=== PATIENT | male | born 1940 | race Caucasian/White ===

== ENCOUNTER 2024-05-28 11:46 | Inpatient (IN) | payer OTHER, SELFPAY ==
[2024-05-27] VITALS (12 sets, daily range): BP systolic 114–181; BP diastolic 60–157; PULSE 77; O2SAT 95; BMI 34.2
--- NOTE | 2024-05-27 08:36 | ED.GENMED ---
History of Present Illness
General
Chief Complaint: Fall
Source: patient and ambulance crew
Exam Limitations: none
Time Seen by Provider: 05/27/24 07:53
Nursing documentation reviewed up to this point in time: agreed with
History of Present Illness
History of Present Illness:
Patient who is legally blind, presents to ED from home after falling down while walking to the bathroom. Patient's spouse heard the noise and attempted to him immediately. Secondary to significant right shoulder pain from the fall, 911 was called.
Patient does recall hitting his head when he fell down. However, denies headache or dizziness. Denies nausea or vomiting. Denies loss of sensation or weakness. Patient does not take any blood thinning medication. In addition, patient presents
with significantly swollen legs, which has been evaluated both by his primary care physician as well as technology consultant. Patient does not believe he is taking any water pills currently. Denies chest pain or shortness of breath. Denies leg pain.
Denies fever.
Review of Systems
Review of Systems
Allergies reviewed?: Yes
All Other Systems: ROS reviewed and negative except as documented in HPI and ROS
Constitutional: Reports no symptoms
EENT: Reports no symptoms
Respiratory: Reports no symptoms; Denies trouble breathing
Cardiac: Reports no symptoms; Denies chest pain
ABD/GI: Reports no symptoms
Musculoskeletal: Reports edema
Skin: Reports no symptoms
Neurological: Reports no symptoms
Phy Exam
Physical Exam
Physical Exam:
Physical Exam
General: mid painful distress, not acutely ill. afebrile
Head: mild swelling noted posterior scalp.
Neck: supple. normal range of motion.
Heart: s1/s2 regular rate and rhythm, no murmur. equal radial pulses.
Lungs: no acute respiratory distress. clear bilaterally
Abdomen: normal bowel sounds. not tender.
Neuro: alert and oriented. no focal neurological deficits
Skin: no rash
Psychiatric: well kept. interactive and cooperative
Extremities: diffuse right shoulder tenderness to palpation without obvious deformity. b/l LE edema, pitting
Course
Orders/Labs/Results
Orders:
Orders
05/27/24 08:29
CT Cervical Spine W/o Iv Contr Urgent
Comment:
Reason For Exam: trauma
CT Head W/o Iv Contrast Urgent
Comment:
Reason For Exam: trauma
CR Shoulder, Trauma - Right Urgent
Reason For Exam: trauma
05/27/24 08:39
Acetaminophen [Tylenol] 650 mg PO NOW STA
05/27/24 11:14
Case Management Consult ONCE
Case Management Consult: Discharge Planning
05/27/24 11:15
HYDROmorphone [Dilaudid] 0.5 mg IV NOW STA
05/27/24 11:32
Physical Therapy Consult [Pt Eval And Treat] Urgent
Activity Level: As Tolerated
05/27/24 12:54
CR Chest Portable - 1 View Urgent
Comment:
Reason For Exam: fluid overload
Reason Study Needs to be Portable: Patient Unstable
05/27/24 13:31
Complete Blood Count/No Diff Urgent
NT-proBNP Urgent
05/27/24 14:08
Ketorolac [Toradol] 15 mg IV NOW STA
05/27/24 14:20
Basic Metabolic Panel Urgent
Magnesium Urgent
05/27/24 Dinner
Cholesterol Lowering
At Your Request: Limited Participation
Does patient need a safe tray?: No
Cholesterol Lowering: Sodium, 2 Gram
05/27/24 15:44
Admit/Transfer Patient As Directed
Co-Sign Provider:
Level of Care: Observation services
Assign to:: Medical/Surgical
Physician / Group: [email or web address]
Diagnosis: acute traumatic Rt NoF Humaral Fx s/p mechanical fall, acute gait dysfuncti
05/27/24 15:46
Code Status As Directed
Resuscitation Status: Full Code
05/27/24 15:58
Peripheral Venous Lwr Ext Bilat US [US Periph Venous LOWER Ext [place]] Urgent
Comment:
Reason For Exam: eval for DVT
05/27/24 17:38
Furosemide [Lasix] 40 mg PO DAILYPRN PRN
HYDROmorphone [Dilaudid] 0.25 mg IV Q4HPRN PRN
Magnesium Hydroxide [Milk of Magnesia] 30 ml PO DAILYPRN PRN
Oxycodone [Roxicodone] 5 mg PO Q4HPRN PRN
Tamsulosin [Flomax] 0.4 mg PO DAILYPRN PRN
Trazodone [Desyrel] 150 mg PO HSPRN PRN
05/27/24 17:38
ORTHOPEDIC CONSULT Routine
Consulting Provider: Otf Rucker
Was physician already notified: Yes
Reason for consult: Rt neck of humeral Fx
Activity As Directed
Activity Level: With Assistance
Bladder Scan As Directed
Follow Bladder Retention/Intermittent Cath Algorithm?: Yes
PRN if no void in __ hours: 6
Comment: if not voiding 6 hrs upon arrival to floor, bladder scan & follow algorithm
Intake/ Output As Directed
Frequency: Per unit guidelines
Straight Cath As Directed
Frequency: Per Retention Algorithm
Additional Instructions: straight cath as needed per acute urinary retention algorithm for 24 hrs
Additional Instructions: for bladder scan greater than 400 mL
Vital Signs As Directed
Frequency: Per unit guidelines
Ot Eval And Treat Routine
Pt Eval And Treat Routine
Activity Level: With Assistance
DX Deep Vein Thrombosis Video Routine
05/27/24 17:51
Gabapentin [Neurontin] 600 mg PO HSPRN PRN
05/27/24 18:00
Acetaminophen [Tylenol] 650 mg PO Q4HWA
Atorvastatin [Lipitor] 10 mg PO QPM
CeFAZolin 1 GRAM [Ancef] 1 gram in 5 ml IV Q8H
Enoxaparin Sodium [Lovenox] 40 mg SC QPM
Flush (0.9% Sodium Chloride) [Flush (Nss)] See Dose Instructions IV PER PROTOCOL
05/27/24 18:25
Pt Screening Request from [facility] Routine
05/27/24 20:00
Docusate Sodium [Colace] 100 mg PO BID
Miconazole Nitrate [Desenex/Mitrazol/Zeasorb] See Dose Instructions TOPICAL BID
Sennosides [Senokot] 17.2 mg PO BID
05/28/24 08:00
Allopurinol [Zyloprim] 200 mg PO DAILY
Metoprolol Xl [Toprol Xl] 50 mg PO DAILY
Valsartan [Diovan] 80 mg PO DAILY
05/29/24 06:00
Basic Metabolic Panel IN AM
Complete Blood Count/No Diff IN AM
Magnesium IN AM
05/30/24 06:00
Basic Metabolic Panel IN AM
Complete Blood Count/No Diff IN AM
Magnesium IN AM
05/31/24 06:00
Basic Metabolic Panel IN AM
Complete Blood Count/No Diff IN AM
Magnesium IN AM
06/01/24 06:00
Basic Metabolic Panel IN AM
Complete Blood Count/No Diff IN AM
06/02/24 06:00
Basic Metabolic Panel IN AM
Complete Blood Count/No Diff IN AM
06/03/24 06:00
Basic Metabolic Panel IN AM
Complete Blood Count/No Diff IN AM
06/04/24 06:00
Basic Metabolic Panel IN AM
Complete Blood Count/No Diff IN AM
Abnormal Lab Results
05/27/24 05/27/24 05/27/24
13:31 14:20 21:36
RBC 4.17 L 10^6/uL
(4.70-6.10)
Hgb 12.9 L g/dL
(13.0-18.0)
Hct 37.1 L %
(39.0-52.0)
MPV 10.8 H fL
(7.4-10.4)
BUN 30 H mg/dl
(9-20)
Glucose 125 H mg/dl
(70-99)
POC Glucose 144 H mg/dl
(70-99)
05/28/24
07:21
RBC
Hgb
Hct
MPV
BUN
Glucose
POC Glucose 109 H mg/dl
(70-99)
05/27/24 13:31
05/27/24 14:20
Vital Signs
Initial and Last Documented VS:
Initial Vital Signs
BP
132/76
05/27/24 07:53
Last Documented Vital Signs
Temp Pulse Resp BP Pulse Ox
97.8 F 65 17 141/78 96
05/28/24 08:00 05/28/24 08:54 05/28/24 08:00 05/28/24 08:54 05/28/24 08:00
MDM/Problems Addressed
MDM/Problems Addressed:
X-ray report reviewed and discussed with patient and his daughter. Afterwards, patient evaluated by physical therapy and case management. In light of recent left wrist fracture along with now right shoulder fracture, as well as instability when
ambulating, patient unsafe to discharge home. In addition, patient with significant leg swelling despite Lasix as an outpatient. As such, patient may benefit from inpatient diuresis as well.
*Critical Care Note
Total Time (30-74mins, 75-104mins- exclusive of procedures): Not Applicable
ED Attending Note
-
Portions of this chart may have been created with voice recognition software.� Occasional wrong word or��sound alike� substitutions may have occurred due to the inherent limitations of voice recognition software.
Discharge Plan
Departure
Patient Disposition: Admit
Date of Disposition: 05/27/24
Time of Disposition: 14:28
Admit to: Telemetry
Presentation/result/management discussed w/ accepting MD/DO: Hospitalist
Discharge Problem:
Fracture of shoulder, Leg swelling
Interventions
Interventions:
*Risk Screen - Suicide Last Done: 05/27/24 08:12
*General Assessment Last Done: 05/27/24 08:12
*Neglect/Abuse Screening Last Done: 05/27/24 08:12
ED- Fall Risk Assessment Last Done: 05/27/24 16:35
*ED COVID-19 Vaccine History Last Done: 05/27/24 08:12
*Nursing Disposition Last Done: 05/27/24 16:35
ED-Musculoskeletal Assessment Last Done: 05/27/24 08:15
ED- Neurological Assessment Last Done: 05/27/24 08:15
ED-Skin Assessment Last Done: 05/27/24 09:09
Discharge Date and Time
Discharge Date/Time: 05/27/24 17:33
[2024-05-27] MEDS: TYLENOL 650 MG PO ×3 (11:31→23:22)
--- NOTE | 2024-05-27 12:51 | CM ---
Addendum entered by Elda Olmos 05/27/24 16:49:
Patient verbalized that he does not want to go to [facility].
Addendum entered by Elda Olmos 05/27/24 16:46:
Discussed ECHOLS form. Patient was given a copy.
Addendum entered by Elda Olmos 05/27/24 16:42:
Patient uses [facility] in [place]. Dr. Tsang is his PCP. Correction: his left wrist was broken and he now has his right arm in a sling. He was independent before this admission. He is retired. He was an tax attorney. His insurance is [employer].
He denies any +SDOHs.
ANTICIPATED DISCHARGE PLAN: Short term rehab after he is medically cleared.
Addendum entered by Elda Olmos 05/27/24 13:55:
Referrals sent to:
[facility] (patient and daughter's #1 choice)
Addendum entered by Elda Olmos 05/27/24 12:55:
[facility] . Per patient's daughter, she also has multiple health concerns herself and unable to care for patient. He is in agreement with STR if that is what is recommended.
CM gave patient's daughter a list of STR facilities in the area.
Original Note:
CM consult for [facility]. CM reviewed chart. CM introduced self and name. Patient's daughter also in room. CM initially came in to speak to patient about home health care. Daughter expressed concerns that patient is legally blind, recently broke his right
wrist (which is his dominant side), and having issues with ambulating due to not taking his 'water pills'. He feels if he doesn't take the pill, he will not have urinate, which would decrease his risk of falling.
He has a bedside commode. He usually uses a cane, but can not, due to his recent wrist fracture. CM requested a PT consult. Bedside RN and CM shared what the possibly outcomes/recommendations that could be placed after PT's assessment. Patient and
daughter verbalized understanding.
CM gave daughter a list of caregiver agencies in the area and a list of 'power lift' recliners and their pricing.
PT currently in room assessing patient.
[2024-05-27 13:37] LABS: Hematocrit 37.1 % (39.0-52.0); Hemoglobin 12.9 g/dL (13.0-18.0); Mean Corp Hgb Conc. 34.8 g/dL (33.0-37.0); Mean Corpuscular Hgb 30.9 pg (27.0-31.0); Mean Platelet Volume 10.8 fL (7.4-10.4); Platelet Count 144 10^3/uL (130-400); Red Blood Cell Count 4.17 10^6/uL (4.70-6.10); Red Cell Dist. Width 14.5 % (11.5-14.5); White Blood Cell Count 9.9 10^3/uL (4.8-10.8)
[2024-05-27 13:58] LABS: NT-proBNP 614 pg/ml
[2024-05-27] MEDS: TORADOL 15 MG IV (14:22)
[2024-05-27 14:43] LABS: Blood Urea Nitrogen 30 mg/dl (9-20); Calcium 9.5 mg/dl (8.4-10.2); Carbon Dioxide 26 mmol/L (22-30); Chloride 104 mmol/L (98-107); Estimated Creatinine Clearance 53 ml/min; Glucose 125 mg/dl (70-99); Magnesium 1.9 mg/dl (1.6-2.3); Potassium 4.3 mmol/L (3.5-5.1); Sodium 140 mmol/L (135-145); eGFR 55.19
--- NOTE | 2024-05-27 15:36 | HPS.HSE ---
Family Physician
-
Family Physician: Adarsh Dai MD
Chief Complaint
-
fall with Rt shoulder pain
History of Present Illness
HPI
83M legally blind, HTN, HLD , Gout seen at ER [facility] 911 called after falling down while walking to the bathroom.
- spouse heard the noise and attempted to him immediately.
- immediate complaint significant right shoulder pain from the fall, 911 was called.
- Patient does recall hitting his head when he fell down.
- not take any blood thinning medication.
Addendum:
Reports significantly swollen legs, which has been evaluated both by his primary care physician as well as metal products fabricator assembler. Patient does not believe he is taking any water pills currently.
ROS
- denies headache or dizziness.
-denies nausea or vomiting.
- denies loss of sensation or weakness.
- Denies chest pain or shortness of breath. Denies leg pain. Denies fever.
Medical History
Past Medical History
Past Medical History: Reports HTN, Hypercholesterolemia and Other (gout )
Additional Past Medical History:
legally blind
Past Surgical History: Reports Other
Social History
Unable to obtain full social history at this time due to: Other
Tobacco: Other
Alcohol: Other
Drug: Other
Family History
Family History: Not pertinent
Allergies / Home Medications
Allergies reflects when Allergies were last updated in [employer].
Home Medications with original date entered in [employer]
Allergy/Medication List:
Allergies
Allergy/AdvReac Type Severity Reaction Status Date / Time
No Known Allergies Allergy Unverified 05/27/24 07:59
Home Medications
allopurinol 100 mg tablet 200 mg PO DAILY 05/27/24
atorvastatin 10 mg tablet (Lipitor) 10 mg PO QPM 05/27/24
furosemide 20 mg tablet (Lasix) 40 mg PO DAILYPRN PRN FLUID RETENSION 05/27/24
gabapentin 600 mg tablet 600 mg PO HSPRN PRN SLEEP 05/27/24
metoprolol succinate 50 mg tablet,extended release 24 hr (Toprol XL) 50 mg PO DAILY 05/27/24
trazodone 150 mg tablet 150 mg PO HSPRN PRN SLEEP 05/27/24
valsartan 80 mg tablet 80 mg PO DAILY 05/27/24
Review of Systems
-
Constitutional: Reports No Symptoms
EENT: Reports No Symptoms
Respiratory: Reports No Symptoms
Cardiac: Reports No Symptoms
Abdomen/GI: Reports No Symptoms
: Reports No Symptoms
Musculoskeletal: Reports See HPI
Skin: Reports No Symptoms
Neurological: Reports No Symptoms
Endocrine: Reports No Symptoms
Hematologic/Lymphatic: Reports No Symptoms
Psych: Reports No Symptoms
Physical Exam
Vital Signs
Vital Signs
Temp Pulse Resp BP Pulse Ox
97.8 F 71 18 148/84 94
05/27/24 08:00 05/27/24 14:45 05/27/24 14:45 05/27/24 13:00 05/27/24 14:30
Physical Exam
General: Well Developed, Well Nourished and No Apparent Distress
HEENT: NormoCephalic, Moist mucous membranes and Atraumatic
Respiratory: Clear
Cardiac: S1/S2 and Regular Rhythm; No Murmur or Rub
GI: Soft, Non Tender, Non Distended and Normal Bowel Sounds; No Organomegaly
Rectal: Deferred by Provider
Musculoskeletal: Edema, Left Lower Extremity, Edema, Right Lower Extremity and Other (Rt UEx in sling )
Skin: No Rash
Neuro: Nonfocal/grossly intact
Psych: Calm
Laboratory Results
-
05/27/24 13:31
05/27/24 14:20
Data Reviewed
-
Diagnostic Radiology: Report Reviewed by me
Lab Data: Labs Reviewed by me
Impression/Plan
-
Reviewed VS: unremarkable
Laboratory Tests
05/27/24 05/27/24
13:31 14:20
WBC 9.9
Hgb 12.9 L
Plt Count 144
BUN 30 H
Creatinine 1.3
eGFR 55.19
Glucose 125 H
[id number] Pept 614
Rt shoulder XR :
Osteopenia with acute oblique fracture of the surgical neck of humerus associated with 4 mm medial impaction and 5.5 mm lateral displacement of the distal fracture fragment
CXR: Mild pulmonary vascular congestion.
CX spine CT w/o IV
No acute osseous abnormalities
Multilevel cervical degenerative disc disease and degenerative facet joint disease
HCT:
There are no acute intracranial abnormalities.
Right sphenoid sinusitis
There is moderate diffuse cortical atrophy with mild-moderate nonspecific white matter changes as described above.
No prior hospitalist admission:
ASSESSMENT & PLAN
Acute traumatic Fx oblique fracture of the surgical neck of Rt humerus s/p mechanical fall
Underlying osteopenia
- associated with 4 mm medial impaction and 5.5 mm lateral displacement of the distal fracture fragment
- No other associated Fx from fall
- Non surgical Tx
- suggest sling
- acute pain control per Fx set protocol
- PT/OT
- Has seen [facility] recently due to left wrist fracture. I
- [facility] ( Dr Rucker ) consulted ( reviewed XR) and suggest as above
Rt Beny warm and erythematous but non tender possible cellulitis
B/L Beny edema : Non compliance with Frusemide coz legally blind and difficult to get up and go to [facility]
Unremarkable proBNP
- US Both legs
- Empiric IV Ancef
Chr conditions:
legally blind
Insomnia: on Trazodone
Essential HTN:on Frusemide Toprol XL
HLD: on Valsartan
Gout; on allopurinol
DVT Px: LMWH
Code: Full
Obs MS
--- NOTE | 2024-05-27 18:05 | PTCARENOTE ---
Patient admitted from the Emergency room for a fractured right shoulder.The patient is completely blind.He has had frequent falls recently.He has a fractured left wrist as well.Patient is alert and oriented x3.He rates his pain at a 6-7 out of 10. A
thorough skin assessment was completed.The patient is in his bed with the call dudley in reach.His daughter is at the bedside.
[2024-05-27] MEDS: LIPITOR 10 MG PO (18:17)
[2024-05-27] MEDS: ANCEF 5 IV (18:17)
[2024-05-27] MEDS: LOVENOX 40 MG SC (18:19)
[2024-05-27] MEDS: COLACE 100 MG PO (20:44)
[2024-05-27] MEDS: SENOKOT 17.2 MG PO (20:44)
[2024-05-27] MEDS: DESENEX/MITRAZOL/ZEASORB 1 APPLIC TOPICAL (20:47)
[2024-05-27 21:38] LABS: Glucose - Point of Care 144 mg/dl (70-99)
[2024-05-27] MEDS: DESYREL 150 MG PO (23:22)
[2024-05-28] MEDS: ANCEF 5 IV ×3 (01:57→17:14)
[2024-05-28] MEDS: TYLENOL PO ×3 (04:45→15:08)
[2024-05-28 07:22] LABS: Glucose - Point of Care 109 mg/dl (70-99)
--- NOTE | 2024-05-28 07:29 | CON.ORTHO ---
Consultation - Orthopedics
History
HPI: 83-year-old male [id number] presented to the emergency department status post fall with complaints of right shoulder pain. He was subsequently diagnosed with a right proximal humerus fracture and admitted to the hospitalist service.
He is legally blind at baseline. He had also noted some increasing swelling bilateral lower extremities. This morning patient reports pain well localized to right shoulder. He is comfortable at rest in bed in a sling. Pain is made worse with
palpation affected area and any motion to the upper extremity. He recently was treated for a very minimally displaced left distal radius fracture.
Allergies / Home Medications
Past medical history: Legally blind, hypertension, hyperlipidemia, gout
Past surgical history: Other
Family history: Not pertinent
Social history: Lives at home with , retired clergy
Allergy/AdvReac Type Severity Reaction Status Date / Time
No Known Allergies Allergy Unverified 05/27/24 07:59
�Medication �Instructions �Recorded
allopurinol 100 mg tablet 200 mg PO DAILY 05/27/24
atorvastatin 10 mg tablet (Lipitor) 10 mg PO QPM 05/27/24
furosemide 20 mg tablet (Lasix) 40 mg PO DAILYPRN PRN FLUID 05/27/24
RETENSION
gabapentin 600 mg tablet 600 mg PO HSPRN PRN SLEEP 05/27/24
metoprolol succinate 50 mg 50 mg PO DAILY 05/27/24
tablet,extended release 24 hr
(Toprol XL)
trazodone 150 mg tablet 150 mg PO HSPRN PRN SLEEP 05/27/24
valsartan 80 mg tablet 80 mg PO DAILY 05/27/24
Vital Signs / Lab Results
Temp Pulse Resp BP Pulse Ox
98.3 F 61 22 114/60 99
05/27/24 22:48 05/27/24 22:48 05/27/24 22:48 05/27/24 22:48 05/27/24 22:48
05/27/24 13:31
05/27/24 14:20
10 point review systems reviewed and negative unless otherwise stated
General: Pleasant, no acute distress at rest in bed
Musculoskeletal right upper extremity
Skin intact, moderate swelling throughout right shoulder and arm, no ecchymotic staining noted
There is tenderness palpation over proximal humerus
Nontender to palpation over elbow wrist and fingers
No gross motor or sensory deficits distally
Palpable pulses distally
No other areas of bony tenderness palpation crepitation long bones and joints tertiary exam
Diagnostic studies
X-rays right shoulder taken during this hospitalization dependently viewed by myself. These show a minimally displaced right surgical neck fracture proximal humerus
Assessment / Plan
83-year-old male legally blind status post fall right minimally displaced proximal humerus fracture
Nonweightbearing right upper extremity in sling
PT OT
Pain control
Medical management per primary team
No plans for surgical intervention. I think this is certainly within acceptable parameters to treat conservatively
Plan to follow-up with myself in about 2 weeks for repeat evaluation with repeat radiographs to assess for any interval displacement.
Please reach out any questions or concerns
[2024-05-28 08:00] VITALS: BP 141/78
[2024-05-28] MEDS: ZYLOPRIM 200 MG PO (08:53)
[2024-05-28] MEDS: LASIX 40 MG PO (08:53)
[2024-05-28] MEDS: DIOVAN 80 MG PO (08:53)
[2024-05-28] MEDS: SENOKOT 17.2 MG PO (08:53)
[2024-05-28] MEDS: DESENEX/MITRAZOL/ZEASORB 1 APPLIC TOPICAL ×2 (08:54→20:04)
[2024-05-28] MEDS: TOPROL XL 50 MG PO (08:54)
[2024-05-28] MEDS: COLACE 100 MG PO ×2 (08:54→19:45)
[2024-05-28] MEDS: TYLENOL 650 MG PO ×2 (08:54→19:48)
--- NOTE | 2024-05-28 09:51 | W.PN.HOSP.TC ---
Today's Communication/Plan
-
see A/P
Assessment / Plan
Assessment / Plan
HPI: 83 yo M PMH legally blind, HTN, HLD, gout, p/w fall while walking to the bathroom.
He c/o right shoulder pain from the fall. Patient does recall hitting his head when he fell down.
Rt shoulder XR :
Osteopenia with acute oblique fracture of the surgical neck of humerus associated with 4 mm medial impaction and 5.5 mm lateral displacement of the distal fracture fragment
CX spine CT w/o IV
No acute osseous abnormalities
Multilevel cervical degenerative disc disease and degenerative facet joint disease
HCT:
There are no acute intracranial abnormalities.
A/P:
# Acute traumatic oblique fracture of the RIGHT humerus surgical neck from mechanical fall, associated with 4 mm medial impaction and 5.5 mm lateral displacement of the distal fracture fragment
# Underlying osteopenia
Conservative management with sling per Ortho ([facility])
pain control with IV Dilaudid, oxycodone, tylenol
PT/OT
# Right LE erythema, possible cellulitis
# B/L LE edema: Non compliant with Lasix (due to legally blind and difficult to get up and go to [facility])
US neg for DVT
Empiric IV Ancef
Chronic conditions:
# legally blind
# Insomnia on Trazodone
# Essential HTN on Frusemide and Toprol XL
# HLD on Valsartan
# Gout on allopurinol
DVT Px: LMWH
Code: Full
Anticipated Discharge: 24 - 48 hours
Subjective/Interval History
-
Date of Service: May 28, 2024
Objective Data
-
Vital Signs:
Vital Signs
Temp Pulse Resp BP Pulse Ox
36.6 C 65 17 141/78 96
05/28/24 08:00 05/28/24 08:54 05/28/24 08:00 05/28/24 08:54 05/28/24 08:00
I&O
05/27/24 05/28/24 05/29/24
06:59 06:59 06:59
Intake Total 240 / 240
Output Total 400 / 400 200 / 200
Balance -160 / -160 -200 / -200
Review of Systems
-
All other systems: Reviewed and negative
Physical Exam
-
General: Well Developed, Well Nourished, No Apparent Distress, Comfortable and Conversant; Negative Respiratory Distress
HEENT: Normocephalic, Atraumatic, Nose Appears Normal, Ears Appear Normal and Other (blind); Negative Oxygen
Respiratory: Clear to Auscultation and Non Labored Respirations; Negative Accessory Resp Muscle Use
Cardiac: Regular Rhythm and S1/S2
GI: Soft, Nontender, Nondistended and Normal Bowel Sounds
Musculoskeletal: Other (RUE in sling )
Skin: Warm and Dry
Neuro: Awake and Alert
Psych: Calm
Data Reviewed
-
Diagnostic Radiology: Report Reviewed by me
Labs: Labs Reviewed by me
--- NOTE | 2024-05-28 11:52 | CM ---
Chart reviewed
PT - recs - SNF
Called [facility] - [phone], LM on for admissions requesting return call regarding referral previously sent
Plan - SNF when bed obtained and medically ready
[2024-05-28 12:30] VITALS: BP 145/83; PULSE 63; O2SAT 97
[2024-05-28 12:52] VITALS: BP 145/83; PULSE 63; O2SAT 97
[2024-05-28 15:08] VITALS: BP 129/67
[2024-05-28] MEDS: MILK OF MAGNESIA 30 ML PO (15:12)
[2024-05-28] MEDS: LIPITOR 10 MG PO (17:14)
[2024-05-28] MEDS: LOVENOX 40 MG SC (17:15)
[2024-05-28] MEDS: NEURONTIN 600 MG PO (19:49)
[2024-05-28] MEDS: SENOKOT PO (19:52)
[2024-05-28 23:12] VITALS: BP 144/75
[2024-05-29] MEDS: TYLENOL PO ×2 (00:32→12:14)
[2024-05-29] MEDS: ANCEF 5 IV ×3 (02:24→17:01)
[2024-05-29] MEDS: TYLENOL 650 MG PO ×4 (03:04→20:48)
[2024-05-29 05:36] LABS: Hematocrit 34.3 % (39.0-52.0); Hemoglobin 11.5 g/dL (13.0-18.0); Mean Corp Hgb Conc. 33.5 g/dL (33.0-37.0); Mean Corpuscular Hgb 30.2 pg (27.0-31.0); Mean Platelet Volume 11.5 fL (7.4-10.4); Platelet Count 128 10^3/uL (130-400); Red Blood Cell Count 3.81 10^6/uL (4.70-6.10); Red Cell Dist. Width 14.5 % (11.5-14.5); White Blood Cell Count 6.4 10^3/uL (4.8-10.8)
[2024-05-29 05:59] LABS: Blood Urea Nitrogen 30 mg/dl (9-20); Calcium 9.4 mg/dl (8.4-10.2); Carbon Dioxide 25 mmol/L (22-30); Chloride 104 mmol/L (98-107); Estimated Creatinine Clearance 53 ml/min; Glucose 100 mg/dl (70-99); Magnesium 2.2 mg/dl (1.6-2.3); Potassium 4.5 mmol/L (3.5-5.1); Sodium 140 mmol/L (135-145); eGFR 55.19
[2024-05-29] MEDS: COLACE 100 MG PO ×2 (08:06→20:48)
[2024-05-29] MEDS: ZYLOPRIM 200 MG PO (08:06)
[2024-05-29] MEDS: SENOKOT 17.2 MG PO (08:06)
[2024-05-29] MEDS: DESENEX/MITRAZOL/ZEASORB 1 APPLIC TOPICAL ×2 (08:08→20:48)
[2024-05-29] MEDS: TOPROL XL 50 MG PO (08:11)
[2024-05-29] MEDS: DIOVAN 80 MG PO (08:11)
[2024-05-29 08:15] VITALS: BP 124/67
--- NOTE | 2024-05-29 09:04 | W.PN.HOSP.TC ---
Today's Communication/Plan
-
see A/P
Assessment / Plan
Assessment / Plan
HPI: 83 yo M PMH legally blind, HTN, HLD, gout, p/w fall while walking to the bathroom.
He c/o right shoulder pain from the fall. Patient does recall hitting his head when he fell down.
Rt shoulder XR :
Osteopenia with acute oblique fracture of the surgical neck of humerus associated with 4 mm medial impaction and 5.5 mm lateral displacement of the distal fracture fragment
CX spine CT w/o IV
No acute osseous abnormalities
Multilevel cervical degenerative disc disease and degenerative facet joint disease
HCT:
There are no acute intracranial abnormalities.
A/P:
# Acute traumatic oblique fracture of the RIGHT humerus surgical neck from mechanical fall, associated with 4 mm medial impaction and 5.5 mm lateral displacement of the distal fracture fragment
# Underlying osteopenia
Conservative management with sling per Ortho (Neida Rucker)
pain control with IV Dilaudid, oxycodone, tylenol
PT/OT recc SNF
# Right LE erythema, possible cellulitis
# B/L LE edema: Non compliant with Lasix (due to legally blind and difficult to get up and go to BR)
US neg for DVT
Empiric IV Ancef and transition to Keflex at the time of DC, total 14 days
Chronic conditions:
# legally blind
# Insomnia on Trazodone
# Essential HTN on Frusemide and Toprol XL
# HLD on Valsartan
# Gout on allopurinol
DVT Px: LMWH
Code: Full
Dispo: SNF
DW CM
Anticipated Discharge: Within 24 hours
Subjective/Interval History
-
Date of Service: May 29, 2024
Objective Data
-
Labs:
Laboratory Results
05/29/24
04:53
WBC 6.4
Hgb 11.5 L
Hct 34.3 L
Plt Count 128 L
Sodium 140
Potassium 4.5
Chloride 104
Carbon Dioxide 25
BUN 30 H
Creatinine 1.3
Glucose 100 H
Calcium 9.4
Vital Signs:
Vital Signs
Temp Pulse Resp BP Pulse Ox
37.0 C 61 12 124/67 97
05/29/24 08:15 05/29/24 08:15 05/29/24 08:15 05/29/24 08:15 05/29/24 08:15
I&O
05/28/24 05/29/24 05/30/24
06:59 06:59 06:59
Intake Total 240 / 240 735 / 735
Output Total 400 / 400 1775 / 1775
Balance -160 / -160 -1040 / -1040
Review of Systems
-
All other systems: Reviewed and negative
Physical Exam
-
General: Well Developed, Well Nourished, No Apparent Distress, Comfortable and Conversant; Negative Respiratory Distress
HEENT: Normocephalic, Atraumatic, Nose Appears Normal, Ears Appear Normal and Other (blind); Negative Oxygen
Respiratory: Clear to Auscultation and Non Labored Respirations; Negative Accessory Resp Muscle Use
Cardiac: Regular Rhythm and S1/S2
GI: Soft, Nontender, Nondistended and Normal Bowel Sounds
Musculoskeletal: Other (RUE in sling )
Skin: Warm and Dry
Neuro: Awake and Alert
Psych: Calm and Intact Judgement/Insight
Data Reviewed
-
Diagnostic Radiology: Report Reviewed by me
Labs: Labs Reviewed by me
[2024-05-29 10:22] VITALS: BP 128/69; PULSE 62; O2SAT 95
[2024-05-29] MEDS: LASIX 40 MG PO (10:23)
[2024-05-29 11:00] VITALS: BP 148/77
[2024-05-29 11:58] VITALS: BP 148/77; PULSE 57
--- NOTE | 2024-05-29 12:35 | CM ---
Spoke with patient's daughter and regarding SNF
Left messages with [facility]
Per [facility] private bed available at [facility] and patient & family were agreeable to this SNF
tt Dr Alvarez
Spoke with Constantine Lane at [employer] insurance [phone]
authorization started with [employer] - Request ID # [id number]
Clinicals faxed to [phone]
PLAN: [facility] SN[facility]
Report #: [phone]
Fax #: [phone]
--- NOTE | 2024-05-29 14:48 | PN.CDI ---
CDI
- -
CDI:
Physician Documentation Request
Admit Date: 05/28/24 11:46
Dear Doctor Kim,
Please review the following and provide your response in the progress notes.
Clinical Indicators:
PN, 05/29
#....p/w fall while walking to the bathroom.
#...He c/o right shoulder pain from the fall.
# Acute traumatic oblique fracture of the RIGHT humerus surgical neck
#...from mechanical fall, associated with 4 mm medial impaction and
#...5.5 mm lateral displacement of the distal fracture fragment
# Underlying osteopenia
Please provide further specificity regarding the etiology of the right humerus surgical neck fracture:
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
Traumatic fracture only
Other (please specify)
Etiology
Traumatic
Pathologic due to osteoporosis
Pathologic due to neoplastic disease
Pathologic due to other disease (please specify)
Due to a combination of trauma and a pathological process
but the trauma alone would not likely have been sufficient
to cause the fracture
Use of terms such as suspected, likely, concern for, or probable (associated with a specific diagnosis that is being evaluated, monitored, or treated as if it exists) are acceptable and can be coded in the inpatient setting, when documented at the
time of discharge.
Thank you,
Lisa Perry RN BSN CCDS
CDI Specialist
please contact via tiger text
Please use your independent medical judgment in providing your response.
[2024-05-29 15:00] VITALS: BP 129/83
--- NOTE | 2024-05-29 16:25 | PTCARENOTE ---
Notified by PCT that this patient was refusing to ambulate to the bathroom, requesting urinal only; PCT assisted patient with use of the urinal, patient stated to PCT 'I'm finished with the urinal'; Following this the patient urinated on the PCT and
when questioned if this was on purpose patient stated 'yes' and began laughing; Per patient he was angry that he was asked to ambulate to the bathroom
[2024-05-29] MEDS: LOVENOX 40 MG SC (17:01)
[2024-05-29] MEDS: LIPITOR 10 MG PO (17:01)
[2024-05-29] MEDS: SENOKOT PO (20:48)
[2024-05-29] MEDS: DESYREL 150 MG PO (20:48)
[2024-05-29 22:40] VITALS: BP 132/55
[2024-05-30] MEDS: TYLENOL 650 MG PO ×3 (00:04→08:14)
[2024-05-30] MEDS: ANCEF 5 IV ×2 (02:27→11:00)
[2024-05-30 06:09] LABS: Hematocrit 34.8 % (39.0-52.0); Hemoglobin 11.7 g/dL (13.0-18.0); Mean Corp Hgb Conc. 33.6 g/dL (33.0-37.0); Mean Corpuscular Hgb 30.6 pg (27.0-31.0); Mean Corpuscular Volume 91.1 fL (80.0-94.0); Mean Platelet Volume 11.8 fL (7.4-10.4); Platelet Count 133 10^3/uL (130-400); Red Blood Cell Count 3.82 10^6/uL (4.70-6.10); Red Cell Dist. Width 14.4 % (11.5-14.5); White Blood Cell Count 5.8 10^3/uL (4.8-10.8)
[2024-05-30 06:12] LABS: Blood Urea Nitrogen 31 mg/dl (9-20); Calcium 9.4 mg/dl (8.4-10.2); Carbon Dioxide 26 mmol/L (22-30); Chloride 103 mmol/L (98-107); Estimated Creatinine Clearance 53 ml/min; Glucose 97 mg/dl (70-99); Magnesium 2.2 mg/dl (1.6-2.3); Potassium 4.5 mmol/L (3.5-5.1); Sodium 138 mmol/L (135-145); eGFR 55.19
[2024-05-30 07:40] VITALS: BP 115/61
[2024-05-30] MEDS: DESENEX/MITRAZOL/ZEASORB 1 APPLIC TOPICAL (08:13)
[2024-05-30] MEDS: COLACE 100 MG PO (08:13)
[2024-05-30] MEDS: SENOKOT 17.2 MG PO (08:13)
[2024-05-30] MEDS: ZYLOPRIM 200 MG PO (08:14)
[2024-05-30] MEDS: TOPROL XL 50 MG PO (08:15)
[2024-05-30] MEDS: DIOVAN 80 MG PO (08:15)
--- NOTE | 2024-05-30 08:55 | W.PN.HOSP.TC ---
Addendum entered and electronically signed by Mery Alvarez MD 05/30/24 13:33:
total DC time 36 min
Addendum entered and electronically signed by Mery Alvarez MD 05/30/24 11:12:
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
Original Note:
Today's Communication/Plan
-
see A/P
Assessment / Plan
Assessment / Plan
HPI: 83 yo M PMH legally blind, HTN, HLD, gout, p/w fall while walking to the bathroom.
He c/o right shoulder pain from the fall. Patient does recall hitting his head when he fell down.
Rt shoulder XR :
Osteopenia with acute oblique fracture of the surgical neck of humerus associated with 4 mm medial impaction and 5.5 mm lateral displacement of the distal fracture fragment
CX spine CT w/o IV
No acute osseous abnormalities
Multilevel cervical degenerative disc disease and degenerative facet joint disease
HCT:
There are no acute intracranial abnormalities.
A/P:
# Acute traumatic oblique fracture of the RIGHT humerus surgical neck from mechanical fall, associated with 4 mm medial impaction and 5.5 mm lateral displacement of the distal fracture fragment
# Underlying osteopenia
Conservative management with sling per Ortho (Neida Rucker)
pain control with oxycodone, Tylenol
DC further IV Dilaudid
PT/OT recc SNF
# Right LE erythema, possible cellulitis
# B/L LE edema: Non compliant with Lasix (due to legally blind and difficult to get up and go to BR)
US neg for DVT
Empiric IV Ancef with plan to transition to Keflex at the time of DC, total course 14 days
Chronic conditions:
# legally blind
# Insomnia on Trazodone
# Essential HTN on Frusemide and Toprol XL
# HLD on Valsartan
# Gout on allopurinol
DVT Px: LMWH
Code: Full
Dispo: SNF
DW RN
DW CM
Anticipated Discharge: Within 24 hours
Subjective/Interval History
-
Date of Service: May 30, 2024
Objective Data
-
Labs:
Laboratory Results
05/30/24
04:41
WBC 5.8
Hgb 11.7 L
Hct 34.8 L
Plt Count 133
Sodium 138
Potassium 4.5
Chloride 103
Carbon Dioxide 26
BUN 31 H
Creatinine 1.3
Glucose 97
Calcium 9.4
Vital Signs:
Vital Signs
Temp Pulse Resp BP Pulse Ox
36.6 C 64 16 115/61 97
05/30/24 07:40 05/30/24 08:15 05/30/24 07:40 05/30/24 08:15 05/30/24 07:40
I&O
05/29/24 05/30/24 05/31/24
06:59 06:59 06:59
Intake Total 735 / 735 495 / 495 240 / 240
Output Total 1775 / 1775 1575 / 1575
Balance -1040 / -1040 -1080 / -1080 240 / 240
Review of Systems
-
All other systems: Reviewed and negative
Physical Exam
-
General: Well Developed, Well Nourished, No Apparent Distress, Comfortable and Conversant; Negative Respiratory Distress
HEENT: Normocephalic, Atraumatic, Nose Appears Normal, Ears Appear Normal and Other (blind); Negative Oxygen
Respiratory: Clear to Auscultation and Non Labored Respirations; Negative Accessory Resp Muscle Use
Cardiac: Regular Rhythm and S1/S2
GI: Soft, Nontender, Nondistended and Normal Bowel Sounds
Musculoskeletal: Other (RUE in sling )
Skin: Warm and Dry
Neuro: Awake and Alert
Psych: Calm and Intact Judgement/Insight
Data Reviewed
-
Diagnostic Radiology: Report Reviewed by me
Labs: Labs Reviewed by me
[2024-05-30] MEDS: FLUSH (NSS) 2 FLUSH IV (11:00)
--- NOTE | 2024-05-30 11:29 | CM ---
Addendum entered by Karlene Mtz 05/30/24 13:17:
IMM in chart
Addendum entered by Karlene Mtz 05/30/24 13:09:
Approval from [employer] for [facility] (5 DAYS)
Authorization #: [id number]
tt Dr. Alvarez & [facility] & gave her auth #
Called daughter Mini
transportation forms on chart
Original Note:
Patient seen at bedside.
Spoke with Lito at [employer] insurance [phone] - STILL PENDING REVIEW
authorization started with [employer] - Request ID # [id number]
Updated daughter Mini - [phone] - tt Dr. Alvarez
PLAN: [facility] when insurance approved
Report #: [phone]
Fax #: [phone]
[2024-05-30] MEDS: TYLENOL PO ×2 (11:46→15:47)
--- NOTE | 2024-05-30 13:13 | W.DCSUMMARY ---
Discharge Summary
Discharge Data
Date of Admission: 05/28/24
Date of Discharge: 05/30/24
-
Pending Results: No
Hospital Course
Principal Diagnosis:
Acute traumatic oblique fracture of the RIGHT humerus surgical neck from mechanical fall
Right LE erythema, possible cellulitis
Chronic Diagnoses:�
Underlying osteopenia
Legally blind
Insomnia on Trazodone
Essential hypertension on Lasix and Toprol XL
Hyperlipidemia on Valsartan
Gout on allopurinol
Consultations:�
Orthopedic
Procedures:�
None
Clinical course:�
This is a 83 year old male with past medical history as stated above, who presented with a mechanical fall while walking to the bathroom. He landed on his right shoulder and complained of pain on the right shoulder after the injury.
Problem 1:
Acute traumatic oblique fracture of the RIGHT humerus surgical neck from mechanical fall, associated with 4 mm medial impaction and 5.5 mm lateral displacement of the distal fracture fragment.
His CT head showed no acute intracranial abnormality.
He was recommended by orthopedic for conservative management with a sling to the right upper extremity.
He was discharged to SNF per PT OT recommendation.
He can continue Tylenol for pain control.
Problem 2:
Right LE erythema, possible cellulitis.
His US was negative for DVT.
He was started with empiric Ancef while in the hospital and was discharged with oral Keflex for 10 more days (total 14 days course) to cover for possible cellulitis.
As for the rest of his medical problems, they were stable during his hospital stay.
Discharge Plan
-
Patient Disposition: Penitentiary/SNF
Discharge Diagnosis/Procedures: Acute traumatic oblique fracture of the RIGHT humerus surgical neck from mechanical fall;
Right LE erythema, possible cellulitis;
Blindness
Condition: Fair
Diet: As tolerated
Activity: As tolerated
Driving Restrictions: No driving
Referrals:
Adarsh Dai MD [Family Provider] - in less than 1 week
Additional Discharge Medication Instructions: Continue Keflex for another 10 days (total 14 days) for your RLE cellulitis
Prescriptions:
New
cephalexin 500 mg capsule
500 mg PO QID 10 Days Qty: 40 0RF
Continued
gabapentin 600 mg Tablet
600 mg PO HSPRN PRN (Reason: SLEEP)
atorvastatin [Lipitor] 10 mg Tablet
10 mg PO QPM
metoprolol succinate [Toprol XL] 50 mg Tablet Extended Release 24 Hr
50 mg PO DAILY
valsartan 80 mg Tablet
80 mg PO DAILY
allopurinol 100 mg Tablet
200 mg PO DAILY
furosemide [Lasix] 20 mg Tablet
40 mg PO DAILYPRN PRN (Reason: FLUID RETENSION)
trazodone 150 mg Tablet
150 mg PO HSPRN PRN (Reason: SLEEP) Qty: 3 0RF
Discharge Orders:
Discharge Patient (As Directed); Ordered 05/30/24
Ordered By: Mery Alvarez
Discharge Date and Time
Print Language: KYRGYZ
[2024-05-30 15:28] VITALS: BP 133/77
[2024-05-30] MEDS: LOVENOX SC (16:38)
[2024-05-30] MEDS: LIPITOR 10 MG PO (16:38)
== END 2024-05-30 18:00 | DRG 543 ==
LOC: 2 SOUTH 11:46
PROVIDERS: ADMITTING PHYSICIAN Internal Medicine; ATTENDING PHYSICIAN Internal Medicine; CONSULT PHYSICIAN Orthopaedic Surgery; EMERGENCY PHYSICIAN Emergency Medicine; FAMILY PHYSICIAN Family Medicine
DX: M80.011A Age-related osteoporosis with current pathological fracture, right shoulder, initial encounter for fracture (principal); S42.211A Unspecified displaced fracture of surgical neck of right humerus, initial encounter for closed fracture; S42.91XA Fracture of right shoulder girdle, part unspecified, initial encounter for closed fracture; M80.08XA Age-related osteoporosis with current pathological fracture, vertebra(e), initial encounter for fracture; H54.8 Legal blindness, as defined in USA; G47.00 Insomnia, unspecified; I10 Essential (primary) hypertension; M10.9 Gout, unspecified; W18.30XA Fall on same level, unspecified, initial encounter; S62.102A Fracture of unspecified carpal bone, left wrist, initial encounter for closed fracture; M79.89 Other specified soft tissue disorders
CPT/HCPCS: 70450; 71045; 72125; 73030; 80048; 82962; 83735; 83880; 85027; 93970; 96374; 97110; 97116; 97167; 97530; 97535; 99285

== ENCOUNTER 2024-07-12 03:43 | Inpatient (IN) | payer OTHER, SELFPAY ==
[2024-07-11 21:59] VITALS: BP 142/65
[2024-07-11 22:05] VITALS: BMI 32.9
[2024-07-11 22:40] LABS: % Basophils 0.2 % (0-2); % Immature Granulocytes 0.4 % (0-0.5); % Lymphocytes 5.2 % (20.5-51.1); % Monocytes 7.4 % (1.7-9.3); % Neutrophils 86.8 % (42.2-75.2); Absolute Lymphocytes 0.5 10^3/uL (1.2-3.4); Absolute Monocytes 0.7 10^3/uL (0.1-0.6); Absolute Neutrophils 8.3 10^3/uL (1.4-6.5); Hematocrit 38.9 % (39.0-52.0); Hemoglobin 12.8 g/dL (13.0-18.0); Mean Corp Hgb Conc. 32.9 g/dL (33.0-37.0); Mean Corpuscular Hgb 29.8 pg (27.0-31.0); Mean Corpuscular Volume 90.5 fL (80.0-94.0); Mean Platelet Volume 10.5 fL (7.4-10.4); Nucleated Red Blood Cells % 0 % (-); Platelet Count 175 10^3/uL (130-400); Red Cell Dist. Width 14.3 % (11.5-14.5); White Blood Cell Count 9.6 10^3/uL (4.8-10.8)
--- NOTE | 2024-07-11 22:42 | ED.GENMED ---
History of Present Illness
General
Chief Complaint: Fever
Source: patient
Exam Limitations: none
Time Seen by Provider: 07/11/24 22:17
Nursing documentation reviewed up to this point in time: agreed with
History of Present Illness
History of Present Illness:
Patient admitted and treated for right arm fracture as well as potential right lower leg infection 1 month ago, returns to ED secondary to worsening lower leg swelling upon discharge. As patient is blind, swelling was not noted, until it was
noticed recently by his . Upon arrival, patient is found to be febrile, which he was not aware of. Patient states that he has had cellulitis of his buttocks, which required treatment in the past. Currently, patient states that he still has
mild pain over his right buttock. Denies nausea or vomiting. Denies leg pain. Denies back pain. Denies chest pain. Denies shortness of breath. Denies headache. Denies coughing. Denies loss of appetite.
Review of Systems
Review of Systems
Allergies reviewed?: Yes
All Other Systems: ROS reviewed and negative except as documented in HPI and ROS
Constitutional: Reports fever
EENT: Reports no symptoms; Denies sore throat
Respiratory: Reports no symptoms; Denies cough or trouble breathing
Cardiac: Reports no symptoms; Denies chest pain
ABD/GI: Reports no symptoms; Denies vomiting or diarrhea
: Reports no symptoms
Musculoskeletal: Reports edema and other (buttock pain)
Skin: Reports other (leg swelling/redness)
Neurological: Reports no symptoms
Phy Exam
Physical Exam
Physical Exam:
Physical Exam
General: mild distress, not acutely ill. febrile. overweight
Head: nc/at. eomi
Neck: supple. no meningeal signs.
Heart: s1/s2 regular rate and rhythm, no murmur. equal radial pulses.
Lungs: no acute respiratory distress. clear bilaterally
Abdomen: normal bowel sounds. not tender. an approx 1mm superficial ulcer noted over right medial mid-buttock, with mild tenderness, without swelling/ecchymosis, open draingage.
Neuro: alert and oriented x 3. no focal neurological deficits
Skin: no rash
Psychiatric: well kept. interactive and cooperative
Extremities: LE b/l, nonpitting edema, with mild warmth. no calf tenderness.
Sepsis
Sepsis Screening
Sepsis Assessment: Sepsis
Sepsis Screen
Sepsis Screen: Sepsis
Date: 07/12/24
Time: 04:03
Course
Orders/Labs/Results
Orders:
Orders
07/11/24 22:04
Electrocardiogram (*1) Urgent
Reason for Study: Other
Other Reason for Exam: Possible Sepsis
Cardiac Monitoring- Treatment ONCE
EKG- Treatment ONCE
IV Insert/Care/Rem.- Treatment PRN
07/11/24 22:25
COVID-19 Antigen Urgent
Source: Nasal Swab
Complete Blood Count/With Diff Urgent
Comprehensive Metabolic Panel Urgent
Lactic Acid Q4H
Comment: ON ICE, CANCEL 2ND ORDER IF FIRST LACTIC ACID LEVEL <2
Influenza A+B Rapid Molecular Urgent
TIFFANIE Source: Nasal Swab
Specimen Description:
07/11/24 22:35
Urinalysis Reflex To Culture Urgent
Date Specimen was Collected: 07/11/24
Time Specimen was Collected: 22:04
Urine Microscopic Reflex Cult Urgent
Urine Culture Urgent
TIFFANIE Source: U
Specimen Description:
Date Specimen was Collected: 07/11/24
Time Specimen was Collected: 22:04
07/11/24 22:42
Blood Culture Q30M
TIFFANIE Source: Blood/Venous
Specimen Description:
07/11/24 22:44
Acetaminophen [Tylenol] 650 mg PO NOW STA
07/11/24 22:58
Blood Culture Q30M
TIFFANIE Source: Blood/Venous
Specimen Description:
07/12/24 00:00
US Periph Venous LOWER Ext [place] Urgent
Reason For Exam: swelling with redness
07/12/24 01:20
CR Chest - 2 Views Urgent
Comment: COVID +
Reason For Exam: fever/cough
07/12/24 01:43
Vancomycin [Vancocin] 2,000 mg 0.9% Sodium Chloride 500 ml [Nss] 500 ml IV NOW
07/12/24 02:21
Admit/Transfer Patient As Directed
Co-Sign Provider:
Level of Care: Inpatient admission
Assign to:: Telemetry
Physician / Group: hospitalist
Diagnosis: COVID 19 infection
Reason for Telemetry: Subacute Heart Failure
Date to Stop Telemetry: 07/14/24
Time to Stop Telemetry: 11:00
Reason for Hospitalization: lethargy
Expected length of stay greater than two midnights?: Yes
ELOS- Estimated Length of Stay in days: 2
I certify the patient meets the requirements for IP care: Yes
PRN Pain Medication Management As Directed
May give lesser potent ordered pain med per pt: Yes
preference::
Protocol:: Medication orders for pain may be administered in a
manner that supports deferring to patient preference
when the pt is:
- Requesting an ordered lesser potent pain medication.
Least to most potent pain medications are defined
as: acetaminophen < NSAID < tramadol < opioids
(morphine, oxycodone, hydromorphone).
- Requesting a lesser dose of the same medication IF
ORDERED.
- Requesting a less intrusive route of administration
if both routes are prescribed by the provider (PO <
IV).
07/12/24 02:22
Code Status As Directed
Resuscitation Status: Do not resuscitate
Reached after discussion with pt or family/Healthcare POA: Yes
07/12/24 02:23
DNR Bracelet Application ONCE
07/12/24 03:45
Acetaminophen [Tylenol] 650 mg PO Q4HPRN PRN
Albuterol [ProAIR HFA INHALER] 2 puff INH R Q4HPRN PRN
Guaifenesin/Dextromethorphan [Robitussin Dm] 10 ml PO Q4HPRN PRN
07/12/24 03:45
Activity As Directed
Activity Level: Out of Bed-Early Mobility
Intake/ Output As Directed
Frequency: Per unit guidelines
Notify MD As Directed
Notify physician if: SPO2 < 91%
Precautions As Directed
Type of Precautions: Novel Respiratory
Vital Signs As Directed
Frequency: Per unit guidelines
Weight As Directed
Frequency: Daily
Comment: on admission
Pulse Ox/cont/shift [RESP] Routine
Quantity: 1
Special Instructions: continuous pulse oximetry
Pt Eval And Treat Routine
Activity Level: With Assistance
DX Deep Vein Thrombosis Video Routine
07/12/24 06:00
Echo 2D MMode Color/Doppler IN AM
Reason for Study: [place]ell lower ext edema, eval for heart failure
Cholesterol Lowering
Cholesterol Lowering: Sodium, 2 Gram
Basic Metabolic Panel IN AM
Magnesium IN AM
NT-proBNP IN AM
TSH IN AM
07/12/24 08:00
Allopurinol [Zyloprim] 100 mg PO DAILY
Furosemide [Lasix] 40 mg IV DAILY
Guaifenesin [Mucinex] 600 mg PO Q12
Heparin 5,000 units SC Q8
Metoprolol Xl [Toprol Xl] 50 mg PO DAILY
Nirmatrelvir/Ritonavir [Paxlovid 2X150 mg-100 mg Dose Pack] 1 dose PO BID
07/14/24 11:00
DC Protocol for Telemetry ONCE
Abnormal Lab Results
07/11/24 07/11/24
22:25 22:35
RBC 4.30 L 10^6/uL
(4.70-6.10)
Hgb 12.8 L g/dL
(13.0-18.0)
Hct 38.9 L %
(39.0-52.0)
MCHC 32.9 L g/dL
(33.0-37.0)
MPV 10.5 H fL
(7.4-10.4)
Absolute Neuts (auto) 8.3 H 10^3/uL
(1.4-6.5)
Absolute Lymphs (auto) 0.5 L 10^3/uL
(1.2-3.4)
Absolute Monos (auto) 0.7 H 10^3/uL
(0.1-0.6)
Neutrophils % 86.8 H %
(42.2-75.2)
Lymphocytes % 5.2 L %
(20.5-51.1)
BUN 29 H mg/dl
(9-20)
Creatinine 1.6 H mg/dL
(0.7-1.3)
Glucose 115 H mg/dl
(70-99)
AST 16 L U/L
(17-59)
Alkaline Phosphatase 160 H U/L
(38-126)
Leukocyte Esterase Rfl 1+ A
(Negative)
Urine WBC (Reflex) 11-15 A /HPF
(0-5)
Urine Bacteria (Reflex) Few A
(Negative)
SARS-CoV-2 Antigen Positive A
(Negative)
07/11/24 22:25
07/11/24 22:25
Vital Signs
Initial and Last Documented VS:
Initial Vital Signs
Temp Pulse Resp BP
103.0 F H 96 28 142/65
07/11/24 21:59 07/11/24 21:59 07/11/24 21:59 07/11/24 21:59
Last Documented Vital Signs
Temp Pulse Resp BP Pulse Ox
103.0 F H 93 21 110/57 92
07/11/24 21:59 07/11/24 23:00 07/11/24 22:30 07/12/24 01:00 07/12/24 00:59
MDM/Problems Addressed
MDM/Problems Addressed:
Patient found to be COVID-positive, unknown when his symptoms may have started. However, patient's clinical presentation also concerning for potential lower extremity cellulitis. As such, patient will be admitted for IV antibiotics and further
treatment. Acute renal failure, likely secondary to use of Lasix versus prerenal from ongoing infection.
*Critical Care Note
Total Time (30-74mins, 75-104mins- exclusive of procedures): Not Applicable
ED Attending Note
-
Portions of this chart may have been created with voice recognition software.� Occasional wrong word or��sound alike� substitutions may have occurred due to the inherent limitations of voice recognition software.
Discharge Plan
Departure
Patient Disposition: Admit
Date of Disposition: 07/12/24
Time of Disposition: 01:22
Admit to: Med/Surg
Presentation/result/management discussed w/ accepting MD/DO: Hospitalist
Discharge Problem:
COVID-19, Acute renal failure (ARF), Cellulitis
Interventions
Interventions:
*Risk Screen - Suicide Last Done: 07/11/24 22:06
*General Assessment Last Done: 07/11/24 22:06
*Neglect/Abuse Screening Last Done: 07/11/24 22:06
ED- Fall Risk Assessment Last Done: 07/11/24 22:06
*ED COVID-19 Vaccine History Last Done: 07/11/24 22:06
ED- Neurological Assessment Last Done: 07/11/24 22:06
ED-Skin Assessment Last Done: 07/11/24 22:13
[2024-07-11 22:45] LABS: COVID-19 Antigen Positive (Negative)
[2024-07-11 22:48] LABS: Lactic Acid 1.5 mmol/L (0.7-2.0)
[2024-07-11] MEDS: TYLENOL 650 MG PO (22:49)
[2024-07-11 22:55] LABS: Urine Albumin Trace (Neg - Trace); Urine Bilirubin Negative (Negative); Urine Character Clear (Clear); Urine Color Yellow; Urine Glucose Negative (Negative); Urine Ketone Negative (Negative); Urine Leukocyte 1+ (Negative); Urine Nitrite Negative (Negative); Urine Occult Blood Negative (Negative); Urine Urobilinogen Negative (Neg - 1+); Urine pH 6.5 (5.0-9.0)
[2024-07-11 22:56] LABS: ALT (SGPT) 12 U/L (0-50); AST (SGOT) 16 U/L (17-59); Albumin 4.2 g/dl (3.5-5.0); Alkaline Phosphatase 160 U/L (38-126); Blood Urea Nitrogen 29 mg/dl (9-20); Calcium 9.8 mg/dl (8.4-10.2); Carbon Dioxide 27 mmol/L (22-30); Chloride 99 mmol/L (98-107); Estimated Creatinine Clearance 42 ml/min; Glucose 115 mg/dl (70-99); Sodium 137 mmol/L (135-145); Total Bilirubin 0.9 mg/dl (0.2-1.3); Total Protein 6.8 g/dl (6.3-8.2); eGFR 42.75
[2024-07-11 23:08] LABS: Urine Bacteria Few (Negative); Urine Red Blood Cell 0-2 /HPF (0-2)
[2024-07-12] VITALS (9 sets, daily range): BP systolic 104–136; BP diastolic 54–75; BMI 31.9
[2024-07-12] MEDS: VANCOCIN 540 MG IV (01:56)
--- NOTE | 2024-07-12 02:12 | HPS.HSE ---
Family Physician
-
Family Physician: Adarsh Dai MD
Chief Complaint
-
Lower extremity swelling
History of Present Illness
This is an 84-year-old with past medical history significant for hypertension, hyperlipidemia, gout, chronic lower extremity swelling presenting to the emergency department with increased swelling and found to be febrile in the ED with a positive
COVID test.
Patient reports that he has a history of chronic lower extremity edema bilaterally. He was seen by physician several months ago and was placed on Lasix 40 mg daily. Patient takes Lasix intermittently. He states over the last few days he has had
increasing swelling in his lower extremities. He denies any weight gain, dyspnea on exertion chest pain or shortness of breath at rest. He denies any prior history of known CHF. However when he arrived in the emergency department he was febrile
to 103 degrees. A COVID test was positive. He then endorsed that he did have a nonproductive cough for about 2 days.
For me in the Emergency Department the temp was 103, blood pressure was 110/57 with a pulse of 97 and satting 92% on room air. ECG shows sinus rhythm with first degree AV block otherwise unremarkable. His UA was unremarkable. COVID test was
negative. CBC was unchanged from prior with white count 9.6 and hemoglobin of 12.8. Electrolytes were within normal limits. Creatinine was elevated 1.6 from a baseline of 1.3. Her bilateral lower extremity peripheral ultrasound pending.
Medical History
Past Medical History
Past Medical History: Reports HTN and Hypercholesterolemia
Additional Past Medical History:
Gout
Past Surgical History: Reports Other
Social History
Tobacco: Non-smoker
Alcohol: None
Personal:
Living: With Family
Employment: Retired
Family History
Family History: Not pertinent
Allergies / Home Medications
Allergies reflects when Allergies were last updated in [facility].
Home Medications with original date entered in [facility]
Allergy/Medication List:
Allergies
Allergy/AdvReac Type Severity Reaction Status Date / Time
No Known Allergies Allergy Verified 07/12/24 01:40
Home Medications
allopurinol 100 mg tablet 200 mg PO DAILY Gout 05/27/24
atorvastatin 10 mg tablet (Lipitor) 10 mg PO QPM High Cholesterol 05/27/24
furosemide 20 mg tablet (Lasix) 40 mg PO DAILYPRN PRN FLUID RETENSION 05/27/24
gabapentin 600 mg tablet 600 mg PO HSPRN PRN SLEEP 05/27/24
metoprolol succinate 50 mg tablet,extended release 24 hr (Toprol XL) 50 mg PO DAILY Heart Disease/Condition 05/27/24
valsartan 80 mg tablet 80 mg PO DAILY Heart Disease/Condition 05/27/24
cephalexin 500 mg capsule 500 mg PO QID skin 10 days #40 caps 05/30/24
trazodone 150 mg tablet 150 mg PO HSPRN PRN SLEEP #3 tabs 05/30/24
Review of Systems
-
History Source: Patient
EENT: Reports No Symptoms
Respiratory: Reports Cough
Cardiac: Reports No Symptoms
Abdomen/GI: Reports No Symptoms
: Reports No Symptoms
Musculoskeletal: Reports Edema
Skin: Reports No Symptoms
Neurological: Reports No Symptoms
Endocrine: Reports No Symptoms
Hematologic/Lymphatic: Reports No Symptoms
Psych: Reports No Symptoms
Physical Exam
Vital Signs
Vital Signs
Temp Pulse Resp BP Pulse Ox
103.0 F H 93 21 110/57 92
07/11/24 21:59 07/11/24 23:00 07/11/24 22:30 07/12/24 01:00 07/12/24 00:59
Physical Exam
General: Well Developed, Well Nourished and Comfortable
HEENT: NormoCephalic, Anicteric, Atraumatic and PERRLA
Respiratory: Clear
Cardiac: S1/S2 and Regular Rhythm
GI: Soft, Non Tender, Non Distended and Normal Bowel Sounds
Rectal: Deferred by Provider
Genito-urinary: Deferred by me
Musculoskeletal: No Clubbing, No Cyanosis, Edema, Left Lower Extremity and Edema, Right Lower Extremity
Skin: Warm
Neuro: AO x 3 and Nonfocal/grossly intact
Hematologic/Lymphatic: No Lymphadenopathy
Psych: Calm
Laboratory Results
-
07/11/24 22:25
07/11/24 22:25
Laboratory Results
Lactic Acid Cancelled 07/12/24 02:15
Total Bilirubin 0.9 mg/dl (0.2-1.3) 07/11/24 22:25
AST 16 U/L (17-59) L 07/11/24 22:25
ALT 12 U/L (0-50) 07/11/24 22:25
Alkaline Phosphatase 160 U/L (38-126) H 07/11/24 22:25
Data Reviewed
-
Medical Tests (Nuc Med, Echo, EKG etc): Image Personally Visualized and interpreted
Lab Data: Labs Reviewed by me
Old Records: Reviewed
Impression/Plan
-
IMPRESSION:
Patient here with fever and positive covid as likely etiology of his fever. Cough for 2 days prior. Has increased edema of the LE which is why he came in but does not appear to have cellulitis to me. He is lethargic likely from the covid. Cannot
rule out new CHF as patient was unable to provide much history.
PLAN:
1. COVID 19 infection - moderate disease in patient with risk factors
- admit to telemetry based on possible chf
- start paxlovid, no steroids as not currently on oxygen
- supportive care with antitussives and antiemetics
- respiratory treatments prn
2. LE edema - Known edema on lasix but no known h/o chf. No liver disease. CKD and renal function slightly worse than baseline.
- telemetry
- follow peripheral u/s
- check bnp, echo and tsh
- check chest xray for pulm edema or effusion
- lfts
- continue home lasix but IV at 40mg daily for now with hold parameters for bp
- consider cardiology consult once data obtained
3 HTN - BP borderline today with uptrending creatinine
- hold arb
- continue metoprolol succinate with hold parameters
DVT PPX - heparin sq
Code status - DNR
[2024-07-12 06:59] LABS: NT-proBNP 1150 pg/ml
[2024-07-12 07:12] LABS: Blood Urea Nitrogen 28 mg/dl (9-20); Calcium 9.3 mg/dl (8.4-10.2); Carbon Dioxide 25 mmol/L (22-30); Chloride 100 mmol/L (98-107); Estimated Creatinine Clearance 48 ml/min; Glucose 103 mg/dl (70-99); Potassium 4.1 mmol/L (3.5-5.1); Sodium 138 mmol/L (135-145); eGFR 50.18
[2024-07-12 07:39] LABS: TSH 1.38 uIU/ml (0.47-4.68)
--- NOTE | 2024-07-12 07:42 | W.PN.HOSP.TC ---
Today's Communication/Plan
-
1. COVID 19 infection - moderate disease in patient with risk factors
- Follow on telemetry (probable chf)
- Continue paxlovid, no steroids indicated at this time as he is not currently on oxygen, and not wheezy
- continue supportive care with antitussives and antiemetics and respiratory treatments prn
2. LE edema - Known edema on lasix but no known h/o chf. No known liver disease. CKD and renal function slightly worse than baseline. BNP 1,150
- Follow on telemetry during diuresis
- follow peripheral u/s results when available
- echo and tsh ordered
- check chest xray results when available for pulm edema or effusion
- Follow daily lfts
- continue lasix, but switch to IV at 40mg daily for now with hold parameters for bp
- consider cardiology consult once data obtained, if there are further questions
3. HTN - BP borderline at admit with up-trending creatinine
- Continue to hold arb
- continue metoprolol succinate with hold parameters
Assessment / Plan
Assessment / Plan
84-year-old man with past medical history of:
hypertension,
hyperlipidemia,
gout,
chronic lower extremity swelling
presenting to the emergency department with increased leg swelling, found to be febrile in the ED, with a positive COVID test.
A/P:
1. COVID 19 infection - moderate disease in patient with risk factors
- Follow on telemetry (probable chf)
- Continue paxlovid, no steroids indicated at this time as he is not currently on oxygen, and not wheezy
- continue supportive care with antitussives and antiemetics and respiratory treatments prn
2. LE edema - Known edema on lasix but no known h/o chf. No known liver disease. CKD and renal function slightly worse than baseline. BNP 1,150
- Follow on telemetry during diuresis
- follow peripheral u/s results when available
- echo and tsh ordered
- check chest xray results when available for pulm edema or effusion
- Follow daily lfts
- continue lasix, but switch to IV at 40mg daily for now with hold parameters for bp
- consider cardiology consult once data obtained, if there are further questions
3. HTN - BP borderline at admit with up-trending creatinine
- Continue to hold arb
- continue metoprolol succinate with hold parameters
DVT PPX - heparin sq
Code status - DNR
Anticipated Discharge: > 48 hours
Subjective/Interval History
-
Date of Service: July 12, 2024
Patient was sleeping comfortably. He did not have any new complaints, and 'felt ok.'
Objective Data
-
Labs:
Laboratory Results
07/11/24 07/12/24
22:25 05:54
WBC 9.6
Hgb 12.8 L
Hct 38.9 L
Plt Count 175
Sodium 137 138
Potassium 4.0 4.1
Chloride 99 100
Carbon Dioxide 27 25
BUN 29 H 28 H
Creatinine 1.6 H 1.4 H
Glucose 115 H 103 H
Calcium 9.8 9.3
Total Bilirubin 0.9
AST 16 L
ALT 12
Alkaline Phosphatase 160 H
Vital Signs:
Vital Signs
Temp Pulse Resp BP Pulse Ox
99.1 F 75 22 129/75 95
07/12/24 05:40 07/12/24 06:15 07/12/24 06:15 07/12/24 06:00 07/12/24 05:45
Review of Systems
-
History Source: Patient
All other systems: Reviewed and negative
Physical Exam
-
General: Well Developed, Well Nourished, No Apparent Distress, Comfortable and Obese
HEENT: Normocephalic, Moist Mucous Membranes, Nose Appears Normal and Ears Appear Normal
Respiratory: Clear to Auscultation and Decreased Breath Sounds
Cardiac: Regular Rhythm and S1/S2
GI: Soft, Nontender and Nondistended
Musculoskeletal: Edema, Right Lower Extrem and Edema, Left Lower Extrem
Skin: Warm and Dry
Neuro: Awake, Alert and Oriented
Psych: Calm
Data Reviewed
-
Labs: Labs Reviewed by me
[2024-07-12] MEDS: LASIX 40 MG IV (07:54)
[2024-07-12] MEDS: ZYLOPRIM 100 MG PO (07:54)
[2024-07-12] MEDS: TOPROL XL 50 MG PO (07:54)
[2024-07-12] MEDS: MUCINEX 600 MG PO ×2 (07:54→20:52)
[2024-07-12] MEDS: PAXLOVID 2X150 MG-100 MG DOSE PACK 1 DOSE PO ×2 (07:54→20:52)
[2024-07-12] MEDS: HEPARIN 5000 UNITS SC ×3 (07:55→23:13)
--- NOTE | 2024-07-12 08:01 | PHANOTE ---
med rec note- called patient spouse but no answer. left message for her to call back. tied to speak with patient but he just say maybe or I think so to each medication related question
--- NOTE | 2024-07-12 08:37 | PTCARENOTE ---
pt wakes to name. blind both eyes. states no pain or sob. breath sounds diminished at bases. bilat legs +4 edema red warm to touch. weak pedal pulses. call dudley in pt hands or instructed to call out if needs help.
[2024-07-12] MEDS: TYLENOL 650 MG PO (16:42)
[2024-07-13] VITALS (7 sets, daily range): BP systolic 109–139; BP diastolic 61–85; PULSE 89; O2SAT 98; BMI 31.9
[2024-07-13] MEDS: TYLENOL 650 MG PO (02:23)
[2024-07-13] MEDS: MUCINEX 600 MG PO ×2 (08:20→20:30)
[2024-07-13] MEDS: ZYLOPRIM 100 MG PO (08:20)
[2024-07-13] MEDS: TOPROL XL 50 MG PO (08:20)
[2024-07-13] MEDS: HEPARIN 5000 UNITS SC ×3 (08:21→23:35)
[2024-07-13] MEDS: LASIX 40 MG IV (08:22)
[2024-07-13 09:23] LABS: ALT (SGPT) 12 U/L (0-50); AST (SGOT) 23 U/L (17-59); Albumin 3.6 g/dl (3.5-5.0); Alkaline Phosphatase 122 U/L (38-126); Blood Urea Nitrogen 30 mg/dl (9-20); Calcium 9.1 mg/dl (8.4-10.2); Carbon Dioxide 24 mmol/L (22-30); Chloride 99 mmol/L (98-107); Estimated Creatinine Clearance 51 ml/min; Glucose 93 mg/dl (70-99); Potassium 3.4 mmol/L (3.5-5.1); Sodium 134 mmol/L (135-145); Total Bilirubin 0.9 mg/dl (0.2-1.3); Total Protein 6.1 g/dl (6.3-8.2); eGFR 54.85
--- NOTE | 2024-07-13 09:30 | W.PN.HOSP.TC ---
Today's Communication/Plan
-
replete K
continue diuresis
Assessment / Plan
Assessment / Plan
84-year-old man with past medical history of:
hypertension,
hyperlipidemia,
gout,
chronic lower extremity swelling
presented to the emergency department with increased leg swelling, found to be febrile in the ED, with a positive COVID test.
A/P:
1. COVID 19 infection - moderate disease in patient with risk factors
- continue to Follow on telemetry (probable chf)
- Continue paxlovid, no steroids indicated at this time as he is not currently on oxygen, and not wheezy
- continue supportive care with antitussives and antiemetics and respiratory treatments prn
2. LE edema - Known edema on lasix but no known h/o chf. No known liver disease. CKD and renal function slightly worse than baseline. BNP 1,150
- Follow on telemetry during diuresis
- follow peripheral u/s results show no dvt
- echo ordered
- check chest xray results show patchy lower lobe opacity
- Follow daily lfts
- continue lasix, but switch to IV at 40mg daily for now with hold parameters for bp
3. HTN - BP borderline at admit with up-trending creatinine
- Continue to hold arb
- continue metoprolol succinate with hold parameters
- check renal function daily
4. Low K - likely from diuresis
- replete with po K
- check magnesium
DVT PPX - heparin sq
Code status - DNR
Anticipated Discharge: > 48 hours
Subjective/Interval History
-
Date of Service: July 13
Feels better today
Objective Data
-
Labs:
Laboratory Results
07/13/24
07:41
WBC Pending
Hgb Pending
Hct Pending
Plt Count Pending
Sodium 134 L
Potassium 3.4 L
Chloride 99
Carbon Dioxide 24
BUN 30 H
Creatinine 1.3
Glucose 93
Calcium 9.1
Total Bilirubin 0.9
AST 23
ALT 12
Alkaline Phosphatase 122
Vital Signs:
Vital Signs
Temp Pulse Resp BP Pulse Ox
97.4 F 89 16 130/73 98
07/13/24 08:06 07/13/24 08:22 07/13/24 08:06 07/13/24 08:22 07/13/24 08:06
I&O
07/12/24 07/13/24 07/14/24
06:59 06:59 06:59
Intake Total 1470 / 1470
Output Total 625 / 625
Balance 845 / 845
Review of Systems
-
History Source: Patient
All other systems: Reviewed and negative
Physical Exam
-
General: Well Developed, Well Nourished and Obese
HEENT: Normocephalic, Atraumatic, Nose Appears Normal and Ears Appear Normal
Respiratory: Clear to Auscultation and Decreased Breath Sounds
Cardiac: Regular Rhythm and S1/S2
GI: Soft, Nontender and Nondistended
Musculoskeletal: No Clubbing, No Cyanosis, Edema, Right Lower Extrem and Edema, Left Lower Extrem
Skin: Warm and Dry
Neuro: Awake, Alert and Oriented
Psych: Calm
Data Reviewed
-
Labs: Labs Reviewed by me
[2024-07-13 09:38] LABS: Hematocrit 36.7 % (39.0-52.0); Hemoglobin 12.3 g/dL (13.0-18.0); Mean Corp Hgb Conc. 33.5 g/dL (33.0-37.0); Mean Corpuscular Hgb 29.9 pg (27.0-31.0); Mean Corpuscular Volume 89.1 fL (80.0-94.0); Mean Platelet Volume 11.8 fL (7.4-10.4); Platelet Count 161 10^3/uL (130-400); Red Blood Cell Count 4.12 10^6/uL (4.70-6.10); Red Cell Dist. Width 14.3 % (11.5-14.5); White Blood Cell Count 4.6 10^3/uL (4.8-10.8)
[2024-07-13] MEDS: PAXLOVID 2X150 MG-100 MG DOSE PACK 1 DOSE PO ×2 (09:50→20:30)
[2024-07-13] MEDS: KLOR-CON 20 MEQ PO (09:59)
--- NOTE | 2024-07-13 10:21 | CM ---
Addendum entered by ROSALINDA Pete 07/13/24 16:36:
Received call from Nery at [facility] who requested update. She asked that clinical be sent through [facility]. Will send information requested.
Original Note:
Placed a call to patient's daughter to obtain information for assessment. Patient's daughter stated that patient lives with his Significant Other in a one story condo with no steps to enter. He needs assistance with his ADLs, personal care, bathing
and dressing. He has a woman who comes in to clean every two weeks. His does the cooking, laundry and his daughter helps with firebrick layer helper and med management. Patient is blind and therefore has to rely on his or daughter to do all of
the driving.
Patient's daughter reported that he has no DME.
He has had VN through [facility] recently.
He does have a prescription plan and uses, [facility] in [place] for all of his medication.
His PCP is, Adarsh Dai.
Patient's daughter stated that if patient needs SNF, she would like referrals sent to [facility] and [facility].
She stated that she feels patient will want to return home.
Plan: Case management will continue to follow and assist with discharge planning. Referrals sent to SNF.
[2024-07-13 10:30] LABS: Magnesium 2.1 mg/dl (1.6-2.3)
--- NOTE | 2024-07-13 12:27 | PN.CDI ---
CDI
- -
CDI:
Physician Documentation Request
Admit Date: 07/12/24 03:43
Dear Doctor Ronald ,
Please review the following and provide your response in the progress notes.
Clinical Indicators:
Pt admitted with COVID-19
Documented per H&P and progress notes ,' - continue to Follow on telemetry (probable chf) ...LE edema - Known edema on lasix but no known h/o chf. No known liver disease. CKD and renal function slightly worse than baseline. BNP 1,150...'
ECHO 07/12, ' LV ejection fraction is 55-60%...'
Please provide further specificity regarding the most likely type and acuity of CHF you are evaluating, treating or monitoring.
Acute Diastolic CHF
Other ( please specify)
Use of terms such as suspected, likely, concern for, or probable (associated with a specific diagnosis that is being evaluated, monitored, or treated as if it exists) are acceptable and can be coded in the inpatient setting, when documented at the
time of discharge.
Thank you,
Vy Farias RN
CDI Specialist
[place] [facility]
Please use your independent medical judgment in providing your response.
--- NOTE | 2024-07-13 12:39 | PN.CDI ---
CDI
- -
CDI:
Physician Documentation Request
Admit Date: 07/12/24 03:43
Dear Doctor Ronald,
Please review the following and provide your response in the progress notes.
Clinical Indicators:
Pt admitted with COVID-19
Documented per ED, ' Acute renal failure, likely secondary to use of Lasix versus prerenal from ongoing infection....'
Documented per H&P an progress notes 07/12 &07/13, ' ... CKD and renal function slightly worse than baseline....BP borderline at admit with up-trending creatinine ....'
07/11/24 07/12/24 07/13/24
22:25 05:54 07:41
Creatinine 1.6 H 1.4 H 1.3
eGFR 42.75 50.18 54.85
Clarify which of the following accurately represents the patient's renal status:
ALONA on CKD ( please specify stage )
CKD only ( please specify stage )
Other ( please specify)
Criteria for ALONA*
1 Increase in serum creatinine by > or = to 0.3 mg/dL (> or = to 26.5 micromol/L) within 48 hours, OR
2 Increase in serum creatinine to > or = to 1.5 times baseline, which is known or presumed to have occurred within 7 days, OR
3 Urine volume < 0.5 nL/kg/hour for six hours
Stages of Chronic Kidney Disease*
Level Description GFR
G1 Normal or High >90
G2 Mildly decreased 60-89
G3a Mildly to moderately decreased 45-59
G3b Moderately to severely decreased 30-44
G4 Severely decreased 15-29
G5 Kidney failure <15
Use of terms such as suspected, likely, concern for, or probable (associated with a specific diagnosis that is being evaluated, monitored, or treated as if it exists) are acceptable and can be coded in the inpatient setting, when documented at the
time of discharge.
Thank you,
Vy Farias RN
CDI Specialist
[place] [facility]
Please use your independent medical judgment in providing your response.
*Source: Kidney Disease: Improving Global Outcomes (KDIGO) 2012
--- NOTE | 2024-07-13 12:45 | PN.CDI ---
CDI
- -
CDI:
Physician Documentation Request
Admit Date: 07/12/24 03:43
Dear Doctor Ronald,
Please review the following and provide your response in the progress notes.
Clinical Indicators:
Pt admitted with COVID-19
On admission Tma 103, HR 96, Respirations 28
Please clarify which of the following most accurately describes the status of the patient's infection:
Viral Sepsis-POA
- Systemic manifestations of infection, with 2 or more SIRS criteria which include:
- Fever >100.4 degrees F or hypothermia < 96.8 degrees F
- Leukocytosis - WBC > 12,000 or leukopenia - WBC < 4,000 or > 10% bands
- Tachycardia > 90 beats per minute
- Tachypnea - RR > 20 breaths per minute or PaCO2 , 32mmHg
Source: Merck Manual 2013
COVID-19 Only , Without Systemic Illness
Other ( please specify)
Use of terms such as suspected, likely, concern for, or probable (associated with a specific diagnosis that is being evaluated, monitored, or treated as if it exists) are acceptable and can be coded in the inpatient setting, when documented at the
time of discharge.
Thank you,
Vy Farias RN
CDI Specialist
[place] Text
Please use your independent medical judgment in providing your response.
[2024-07-14 03:00] VITALS: BP 141/77
[2024-07-14 06:00] VITALS: BMI 31.5
[2024-07-14 07:15] VITALS: BP 123/70
[2024-07-14 07:20] LABS: Hematocrit 38.5 % (39.0-52.0); Hemoglobin 13.2 g/dL (13.0-18.0); Mean Corp Hgb Conc. 34.3 g/dL (33.0-37.0); Mean Corpuscular Hgb 30.1 pg (27.0-31.0); Mean Corpuscular Volume 87.7 fL (80.0-94.0); Mean Platelet Volume 10.8 fL (7.4-10.4); Platelet Count 152 10^3/uL (130-400); Red Blood Cell Count 4.39 10^6/uL (4.70-6.10); Red Cell Dist. Width 14.2 % (11.5-14.5); White Blood Cell Count 5.7 10^3/uL (4.8-10.8)
[2024-07-14 07:51] LABS: ALT (SGPT) 14 U/L (0-50); AST (SGOT) 27 U/L (17-59); Albumin 3.9 g/dl (3.5-5.0); Alkaline Phosphatase 134 U/L (38-126); Blood Urea Nitrogen 34 mg/dl (9-20); Calcium 9.4 mg/dl (8.4-10.2); Carbon Dioxide 25 mmol/L (22-30); Chloride 96 mmol/L (98-107); Estimated Creatinine Clearance 41 ml/min; Glucose 104 mg/dl (70-99); Potassium 3.7 mmol/L (3.5-5.1); Sodium 134 mmol/L (135-145); Total Bilirubin 0.7 mg/dl (0.2-1.3); Total Protein 6.4 g/dl (6.3-8.2); eGFR 42.75
[2024-07-14] MEDS: HEPARIN 5000 UNITS SC ×2 (09:43→16:07)
[2024-07-14] MEDS: PAXLOVID 2X150 MG-100 MG DOSE PACK 1 DOSE PO (09:43)
[2024-07-14] MEDS: KLOR-CON 20 MEQ PO (09:44)
[2024-07-14] MEDS: TOPROL XL 50 MG PO (09:44)
[2024-07-14] MEDS: ZYLOPRIM 100 MG PO (09:44)
[2024-07-14] MEDS: LASIX 40 MG IV (09:44)
[2024-07-14] MEDS: MUCINEX 600 MG PO ×2 (09:45→19:44)
[2024-07-14 11:00] VITALS: BP 113/65
--- NOTE | 2024-07-14 12:17 | W.PN.HOSP.TC ---
Today's Communication/Plan
-
Paxlovid adjusted to renal dosing
monitor renal function
IV Lasix switched to PO
Compressive therapy GARETH wraps lower ext's ordered
Monitor respiratory status
Assessment / Plan
Assessment / Plan
Physical Exam
General: No acute distress appears comfortable at this time
HEENT: NormoCephalic, Anicteric, Atraumatic, able to open eyes on command but otherwise typically keeps them closed (legally Blind)
Respiratory: Clear
Cardiac: S1/S2 and Regular Rhythm
GI: Soft, Non Tender, Non Distended and Normal Bowel Sounds
Musculoskeletal: No Clubbing, No Cyanosis, Edema, Left Lower Extremity and Edema, Right Lower Extremity
Skin: Warm
Neuro: AOx3
Hematologic/Lymphatic: No Lymphadenopathy
Psych: Calm
84-year-old man with past medical history of:
hypertension,
hyperlipidemia,
gout,
chronic lower extremity swelling
Legally Blind
presented to the emergency department with increased leg swelling, found to be febrile in the ED, with a positive COVID test.
A/P:
# COVID 19 infection - moderate disease in patient with risk factors
- continue to Follow on telemetry (probable chf)
- Continue Paxlovid switched to renal dosing gfr <60 but >30, no steroids indicated at this time as he is not currently on oxygen, and not wheezy
- continue supportive care with antitussives and antiemetics and respiratory treatments prn
2. LE edema - Known edema on lasix but no known h/o chf. No known liver disease. CKD and renal function slightly worse than baseline. BNP 1,150 (could be elevated d/t kidney function vs COVID instead of heart failure)
- Follow on telemetry during diuresis
- follow peripheral u/s results show no dvt
- ECHO appreciated EF 55-60% Mod
- CR chest appreciated possible RLL opacity pna
- continue lasix IV switched back to PO
-suspect LE edema d/t chronic lymphedema as oppose to heart failure, compression wraps ordered, counseled elevation LE's when at rest
# HTN
#Mild ALONA vs CKD 3
- Continue to hold arb
- continue metoprolol succinate with hold parameters
-IV lasix switched back to PO
-Cr range 1.3-1.6 this hospitalization possibly baseline
# Hypokalemia - likely from diuresis
- monitor and replete as necesary
PT/OT appreciated SNF rehab
DVT PPX - heparin sq
Code status - DNR
Discussed with patient and patient's Cathie (also has COVID)
I spent a total of 50 minutes with the patient or on the floor. More than 50% of this time involved counseling and coordination of care.
Anticipated Discharge: 24 - 48 hours
Subjective/Interval History
-
Date of Service: July 14, 2024
Seen and examined at bedside in no acute distress sitting up comfortably in chair. Stable respiratory status on room air. Denies new acute issues. Overall reports feeling well.
Objective Data
-
Labs:
Laboratory Results
07/14/24
07:00
WBC 5.7
Hgb 13.2
Hct 38.5 L
Plt Count 152
Sodium 134 L
Potassium 3.7
Chloride 96 L
Carbon Dioxide 25
BUN 34 H
Creatinine 1.6 H
Glucose 104 H
Calcium 9.4
Total Bilirubin 0.7
AST 27
ALT 14
Alkaline Phosphatase 134 H
Vital Signs:
Vital Signs
Temp Pulse Resp BP Pulse Ox
97.6 F 77 18 113/65 97
07/14/24 11:00 07/14/24 11:00 07/14/24 11:00 07/14/24 11:00 07/14/24 11:00
I&O
07/13/24 07/14/24 07/15/24
06:59 06:59 06:59
Intake Total 1470 / 1470 1200 / 1200
Output Total 625 / 625 2600 / 2600
Balance 845 / 845 -1400 / -1400
--- NOTE | 2024-07-14 14:00 | PTCARENOTE ---
Patient observed wandering around his room. He was unable to describe why he was doing that. Walked patient back to his chair and set up a chair alarm; explained to patient to ring call dudley for help if he needs to get up.
[2024-07-14 15:00] VITALS: BP 107/60
[2024-07-14] MEDS: PAXLOVID 150-100 MG DOSE PACK 1 DOSE PO (21:02)
[2024-07-14 23:16] VITALS: BP 121/64
[2024-07-15] MEDS: TYLENOL 650 MG PO (01:11)
[2024-07-15 06:00] VITALS: BMI 31.2
--- NOTE | 2024-07-15 06:22 | W.PN.HOSP.TC ---
Addendum entered and electronically signed by Jam Rossi MD 07/16/24 11:30:
Viral sepsis present on admission
Tma 103, HR 96, Respirations 28
Addendum entered and electronically signed by Jam Rossi MD 07/15/24 14:48:
Some confusion noted, AOx2 later in the day, patient had difficulty reporting the year to begin with. Remains Alert Conversant Largely Coherent, able to recount accurately that he has been in hospital for 5 days. Possible Hospital Associated
Delirium vs COVID encephalopathy. Vital signs remained stable with stable respiratory status on room air. Patient declined SNF rehab and requested to go home. Became very upset and agitated at the suggestion to stay for one more day of
monitoring. Discussed with Daughter Mini concern possible hospital associated delirium, likely exacerbated by unfamiliar environment and patient's blindness. Further keeping patient against his will likely to cause worsening agitation and
confusion. Confusion relatively mild, patient may improve further in a familiar environment (home). Alternatively if worsens or does not improve, discussed with daughter to bring patient back to ED for further evaluation treatment. Daughter in
agreement with plan. Patient subsequently discharged.
Original Note:
Today's Communication/Plan
-
discharge
Assessment / Plan
Assessment / Plan
Physical Exam
General: No acute distress appears comfortable at this time
HEENT: NormoCephalic, Anicteric, Atraumatic, able to open eyes on command but otherwise typically keeps them closed (legally Blind)
Respiratory: Clear
Cardiac: S1/S2 and Regular Rhythm
GI: Soft, Non Tender, Non Distended and Normal Bowel Sounds
Musculoskeletal: No Clubbing, No Cyanosis, Edema, Left Lower Extremity and Edema, Right Lower Extremity
Skin: Warm
Neuro: AOx3
Hematologic/Lymphatic: No Lymphadenopathy
Psych: Calm
84-year-old man with past medical history of:
hypertension,
hyperlipidemia,
gout,
chronic lower extremity swelling
Legally Blind
presented to the emergency department with increased leg swelling, found to be febrile in the ED, with a positive COVID test.
A/P:
# COVID 19 infection - moderate disease in patient with risk factors
- continue to Follow on telemetry (possible chf)
- no steroids indicated at this time as he is not currently on oxygen, and not wheezy
- continue supportive care with antitussives and antiemetics and respiratory treatments prn
- respiratory status consistently stable, afebrile since 07/12/24
-treated with Paxlovid, not necessary to continue on discharge
2. LE edema - Known edema on lasix but no known h/o chf. No known liver disease. CKD and renal function slightly worse than baseline. BNP 1,150 (could be elevated d/t kidney function vs COVID instead of heart failure)
- Follow on telemetry during diuresis
- follow peripheral u/s results show no dvt
- ECHO appreciated EF 55-60% Mod (oupt follow up with cardiology recommended)
- CR chest appreciated possible RLL opacity pna
- continue lasix IV switched back to PO
-suspect LE edema d/t chronic lymphedema as oppose to heart failure, compression wraps ordered, counseled elevation LE's when at rest
# HTN
#Mild ALONA vs CKD 3
- Continue to hold arb
- continue metoprolol succinate with hold parameters
-IV lasix switched back to PO
-Cr range 1.3-1.6 this hospitalization possibly baseline
# Hypokalemia - likely from diuresis
- monitor and replete as necessary
PT/OT appreciated SNF rehab, patient however declines in favor of home services
DVT PPX - heparin sq
Code status - DNR
Medically stable for discharge home with home services and outpatient follow up recommendations
Discussed with patient and patient's marline Morse
Total Time Preparing Discharge __40 minutes including examination of the patient, summary of the hospital stay, instructions for continuing care to all relevant caregivers; and preparation of discharge records, prescriptions, and referral
forms if necessary.
Anticipated Discharge: Today
Subjective/Interval History
-
Date of Service: July 15, 2024
No acute distress. Reports feeling well. Stable respiratory status on room air. Denies new acute issues. Eager to go home. Noted some confusion hallucination noted overnight by family. Patient cognizant of the event attributes the event to his
blindness and being in unfamiliar environment. AOx3 conversant coherent at capacity to make his own medical decisions at this time.
Objective Data
-
Labs:
Laboratory Results
07/15/24
06:00
WBC Pending
Hgb Pending
Hct Pending
Plt Count Pending
Sodium Pending
Potassium Pending
Chloride Pending
Carbon Dioxide Pending
BUN Pending
Creatinine Pending
Glucose Pending
Calcium Pending
Vital Signs:
Vital Signs
Temp Pulse Resp BP Pulse Ox
97.5 F 65 18 121/64 97
07/14/24 23:16 07/14/24 23:16 07/14/24 23:16 07/14/24 23:16 07/15/24 03:16
I&O
07/13/24 07/14/24 07/15/24
06:59 06:59 06:59
Intake Total 1470 / 1470 1200 / 1200 1680 / 1680
Output Total 625 / 625 2600 / 2600 2425 / 2425
Balance 845 / 845 -1400 / -1400 -745 / -745
[2024-07-15 07:10] VITALS: BP 122/68
[2024-07-15 08:17] LABS: Hematocrit 36.5 % (39.0-52.0); Hemoglobin 12.6 g/dL (13.0-18.0); Mean Corp Hgb Conc. 34.5 g/dL (33.0-37.0); Mean Corpuscular Hgb 30.4 pg (27.0-31.0); Mean Corpuscular Volume 88.2 fL (80.0-94.0); Mean Platelet Volume 11.3 fL (7.4-10.4); Platelet Count 157 10^3/uL (130-400); Red Blood Cell Count 4.14 10^6/uL (4.70-6.10); Red Cell Dist. Width 14.3 % (11.5-14.5); White Blood Cell Count 5.8 10^3/uL (4.8-10.8)
[2024-07-15 08:41] LABS: Blood Urea Nitrogen 39 mg/dl (9-20); Calcium 9.3 mg/dl (8.4-10.2); Carbon Dioxide 26 mmol/L (22-30); Chloride 96 mmol/L (98-107); Estimated Creatinine Clearance 38 ml/min; Glucose 98 mg/dl (70-99); Magnesium 2.1 mg/dl (1.6-2.3); Phosphorus 3.7 mg/dl (2.5-4.5); Potassium 3.9 mmol/L (3.5-5.1); Sodium 134 mmol/L (135-145); eGFR 39.75
[2024-07-15] MEDS: PAXLOVID 150-100 MG DOSE PACK 1 DOSE PO (09:06)
[2024-07-15] MEDS: MUCINEX 600 MG PO (09:06)
[2024-07-15] MEDS: KLOR-CON 20 MEQ PO (09:06)
[2024-07-15] MEDS: TOPROL XL 50 MG PO (09:07)
[2024-07-15] MEDS: ZYLOPRIM 100 MG PO (09:07)
[2024-07-15] MEDS: HEPARIN 5000 UNITS SC ×2 (09:07)
--- NOTE | 2024-07-15 12:03 | W.DCSUMMARY ---
Discharge Summary
Discharge Data
Date of Admission: 07/12/24
Date of Discharge: 07/15/24
-
Pending Results: No
Discharge Plan
-
Patient Disposition: Home with Home Care
Discharge Diagnosis/Procedures: COVID 19 infection
Lower extremity Edema suspected chronic Lymphedema, Heart Failure less likely
Moderate Aortic Stenosis
Hypertension
Mild Acute Kidney Injury on Chronic Kidney Disease stage III
Mild Hypokalemia Resolved
Condition: Fair
Diet: Low Cholesterol and 2 Gram Sodium
Activity: As tolerated
Driving Restrictions: No driving
Bathing Restrictions: None
Blood Work: Please repeat BMP with primary care provider in 1 week of discharge.
Others Tests: Repeat Chest X-ray with primary care provider in 1 week of discharge.
Other Services: PT and OT
Specialty Instructions: Weigh Daily- Call MD for wt gain/loss 3 lbs overnight/5 lbs in 1 week
Activity Restrictions/Additional Instructions:
Please follow up with primary care provider in 1 week of discharge and Cardiology in 2-4 weeks of discharge.
Potassium supplementation prescribed to prevent hypokalemia while taking Lasix diuretic. Hold if not taking Lasix.
Valsartan has been discontinued as blood pressure has been well controlled without it and due to concern mild acute kidney injury.
Please take medications as prescribed/recommended and follow up with primary care provider and/or other healthcare provider involved in your care for refills and/or further adjustment to your medication regimen as necessary.
Referrals:
Darin Jules MD [Active] - in two to four weeks
Adarsh Dai MD [Primary Care Provider] - in one week
Prescriptions:
New
potassium chloride [Klor-Con] 20 mEq Packet
20 meq PO DAILY Qty: 30 0RF
Rx Instructions:
Hold if not taking Lasix
Continued
atorvastatin [Lipitor] 10 mg Tablet
10 mg PO QPM
metoprolol succinate [Toprol XL] 50 mg Tablet Extended Release 24 Hr
50 mg PO DAILY
allopurinol 100 mg Tablet
200 mg PO DAILY
furosemide [Lasix] 20 mg Tablet
40 mg PO DAILY
Discontinued
valsartan 80 mg Tablet
80 mg PO DAILY
Discharge Orders:
Discharge Patient (As Directed); Ordered 07/15/24
Ordered By: Jam Rossi
Discharge Date and Time
Print Language: CITIZEN OF [place]
--- NOTE | 2024-07-15 12:24 | CM ---
Addendum entered by Nuria Quiroz RN 07/15/24 12:37:
Amend Fax # to ([phone])
Medical necessity and transport forms on chart.
Original Note:
Reviewed the chart notes and spoke with the patient via telephone. IMM reviewed. CM continues to be available to patient/family and is monitoring medical plan for needs at discharge.
Plan: Discharge to home with [facility] services.
[facility] )
== END 2024-07-15 14:42 | disposition home health service (06) | DRG 871 ==
LOC: 2 NORTH 03:43
PROVIDERS: Internal Medicine; Student in an Organized Health Care Education/Training Program; ADMITTING PHYSICIAN Internal Medicine; ATTENDING PHYSICIAN Internal Medicine; EMERGENCY PHYSICIAN Emergency Medicine; PRIMARYCARE PHYSICIAN Family Medicine
DX: A41.89 Other specified sepsis (principal); J12.82 Pneumonia due to coronavirus disease 2019; U07.1 COVID-19; N17.9 Acute kidney failure, unspecified; I08.0 Rheumatic disorders of both mitral and aortic valves; N18.30 Chronic kidney disease, stage 3 unspecified; E87.6 Hypokalemia; Z79.899 Other long term (current) drug therapy; E78.00 Pure hypercholesterolemia, unspecified; M1A.9XX0 Chronic gout, unspecified, without tophus (tophi); I44.0 Atrioventricular block, first degree; I12.9 Hypertensive chronic kidney disease with stage 1 through stage 4 chronic kidney disease, or unspecified chronic kidney disease; I89.0 Lymphedema, not elsewhere classified
CPT/HCPCS: 71046; 80048; 80053; 81003; 81015; 83605; 83735; 83880; 84100; 84443; 85025; 85027; 87040; 87086; 87502; 87811; 93005; 93306; 93970; 96365; 96366; 97163; 99285